=== PATIENT | male | born 1950 | race African-American/Black ===

== ENCOUNTER 2016-12-27 03:31 | Emergency (ER) | payer OTHER, MEDICAID ==
[~2016-12-27] VITALS: Ht 177.8 cm; Wt 114.0 kg
[2016-12-27] MEDS ORDERED: MORPHINE SULFATE 4 MG/ML CPJ (NOT FOR IM USE) IV STA (03:48)
[2016-12-27] MEDS ORDERED: ONDANSETRON HCL 4MG/2ML VIAL IV STA (03:48)
[2016-12-27] MEDS ORDERED: NITROGLYCERIN 0.4MG TABLET SL SL PRN (04:00)
[2016-12-27 04:14] LABS: BASOPHILS % 0.2 % (0.0-2.0); EOSINOPHILS % 4.8 % (0.0-5.0); HEMATOCRIT. 39.7 % (42.0-52.0); HEMOGLOBIN. 13.5 g/dL (14.0-18.0); LYMPHOCYTES % 30.4 % (20.0-50.0); MEAN CORPUSCULAR HGB CONC 33.9 g/dL (31.0-37.0); MEAN CORPUSCULAR VOLUME 88.6 fL (80.0-94.0); MEAN PLATELET VOLUME 9.4 fl (7.4-10.4); MONOCYTES % 10.4 % (2.0-8.0); NEUTROPHILS % 54.2 % (40.0-76.0); PLATELET 237 x1000/uL (130-400); RED BLOOD CELL COUNT 4.48 mill/uL (4.7-6.1)
[2016-12-27 04:19] LABS: INR 1.1; PARTIAL THROMBOPLASTIN TIME 27.5 sec (24.0-34.0); PROTHROMBIN TIME 11.5 sec
[2016-12-27 04:24] LABS: ALANINE AMINOTRANSFERASE 38 IU/L (13-61); ALBUMIN 3.6 g/dL (3.4-5.0); ANION GAP 14; CARBON DIOXIDE 27 mEq/L (21-32); CHLORIDE 105 mEq/L (98-107); INDEX HEMOLYSI 1 (1-3); INDEX ICTERIC 1 (1-4); INDEX LIPEMIC 1 (1-3); LIPASE 159 IU/L (73-393); TROPONIN I < 0.02 ng/mL (0.00-0.04); UREA NITROGEN BLOOD 9 mg/dL (7-21); eGFR > 60 mL/min (>60)
[2016-12-27] MEDS ORDERED: POTASSIUM CHLORIDE 40MEQ/30ML UDC PO ONE (05:00)
[2016-12-27] MEDS ORDERED: POTASSIUM CHLORIDE 20 MEQ/PACKET PO NR (05:32)
[2016-12-27 06:55] VITALS: BP 117/76
== END 2016-12-27 07:26 | disposition short-term general hospital (02) ==
LOC: ER 04:05
DX: R07.89 Other chest pain (principal); R20.0 Anesthesia of skin; R42 Dizziness and giddiness; F41.9 Anxiety disorder, unspecified; E78.00 Pure hypercholesterolemia, unspecified; I10 Essential (primary) hypertension; E03.9 Hypothyroidism, unspecified
CPT/HCPCS: 36415; 71010; 80053; 83690; 84484; 85025; 85379; 85610; 85730; 93005; 96374; 96375; 99285; J2270; J2405

== ENCOUNTER 2018-09-02 19:22 | Inpatient (IN) | payer OTHER, MEDICAID ==
[~2018-09-02] VITALS: Ht 175.3 cm; Wt 103.4 kg
[2018-09-02] MEDS ORDERED: VISCOUS LIDOCAINE 2% 15 ML UDC PO STA (20:03)
[2018-09-02 21:41] LABS: BASOPHILS % 0.1 % (0.0-2.0); EOSINOPHILS % 4.9 % (0.0-5.0); HEMOGLOBIN. 13.4 g/dL (14.0-18.0); LYMPHOCYTES % 33.4 % (20.0-50.0); MEAN CORPUSCULAR HEMOGLOBIN 31.1 pg (28.0-32.0); MEAN CORPUSCULAR VOLUME 92.7 fL (80.0-94.0); MEAN PLATELET VOLUME 9.6 fl (7.4-10.4); NEUTROPHILS % 51.6 % (40.0-76.0); PLATELET 231 x1000/uL (130-400); RED BLOOD CELL COUNT 4.32 mill/uL (4.7-6.1); RED CELL DISTRIBUTION WIDTH 13.2 % (11.6-14.6)
[2018-09-02 21:42] LABS: CHLORIDE 107 mEq/L (98-107)
[2018-09-02 21:45] LABS: PROTHROMBIN TIME 10.4 sec (9.1-11.1)
[2018-09-02] MEDS ORDERED: POTASSIUM CHLORIDE 20MEQ/PACKET PO NR (21:45)
[2018-09-02 21:50] LABS: CLARITY URINE CLEAR (CLEAR); COLOR URINE YELLOW (YELLOW); KETONES URINE NEGATIVE (NEGATIVE); LEUKOCYTE ESTERASE URINE NEGATIVE (NEGATIVE); NITRITE URINE NEGATIVE (NEGATIVE); OCCULT BLOOD URINE TRACE (NEGATIVE); PH URINE 5.5 (4.5-8.0); PROTEIN URINE NEGATIVE (NEGATIVE); SPECIFIC GRAVITY URINE 1.006 (1.005-1.030); UROBILINOGEN URINE 0.2 E.U./dL (0.2-1.0)
[2018-09-02 21:56] LABS: T4 FREE 1.22 ng/dL (0.76-1.46)
[2018-09-02] MEDS ORDERED: ASPIRIN 81MG TABLET PO ONE (22:30)
[2018-09-03] MEDS ORDERED: NA PHOS,M-B/NA PHOS,DI-BA ENEMA 118ML PR PRN
[2018-09-03] MEDS ORDERED: CLONIDINE 0.1MG TABLET PO PRN
[2018-09-03] MEDS ORDERED: MAGNESIUM/ALUMINUM HYDROXIDE/SIMETHICONE 30ML UDC PO PRN
[2018-09-03] MEDS ORDERED: IPRATROPIUM/ALBUTEROL 0.5-3(2.5)MG/3ML NEB INH PRN
[2018-09-03] MEDS ORDERED: ACETAMINOPHEN 650MG/20.3ML UDC GT PRN
[2018-09-03] MEDS ORDERED: GUAIFENESIN 200MG/10ML SUGAR FREE UDC PO PRN
[2018-09-03] MEDS ORDERED: ACETAMINOPHEN 325MG TABLET PO PRN
[2018-09-03] MEDS ORDERED: THROAT LOZENGES-BENZOCAINE/MENTH/CETYLPYRD CL LOZENGES MM PRN
[2018-09-03] MEDS ORDERED: HYDROCODONE/ACETAMINOPHEN 5/325MG TABLET PO PRN
[2018-09-03] MEDS ORDERED: DIPHENHYDRAMINE 50MG/ML VIAL IV PRN
[2018-09-03] MEDS ORDERED: DOCUSATE SODIUM 100MG CAPSULE PO PRN
[2018-09-03] MEDS ORDERED: HYDROCODONE/ACETAMINOPHEN 10/325MG TABLET PO PRN
[2018-09-03] MEDS ORDERED: ONDANSETRON HCL 4MG/2ML INJ IV PRN
[2018-09-03] MEDS ORDERED: ACETAMINOPHEN 650MG SUPP PR PRN
[2018-09-03 06:00] VITALS: BP 135/74
[2018-09-03] MEDS: SODIUM CHLORIDE 0.9% INJ 3ML FLUSH IVF SCH ×3 (06:25→21:40)
[2018-09-03 08:00] VITALS: BP 131/60
[2018-09-03] MEDS ORDERED: REGADENOSON 0.4 MG/5 ML IV SCH (08:45)
[2018-09-03] MEDS ORDERED: ASPIRIN 81MG EC TABLET PO SCH (09:00)
[2018-09-03] MEDS ORDERED: ENOXAPARIN 40MG/0.4ML SYR SUBCUT SCH (09:00)
[2018-09-03 09:30] VITALS: BP 131/60
[2018-09-03] MEDS ORDERED: SIMV40TA5 PO (09:56)
[2018-09-03] MEDS ORDERED: ASPI-1079 PO (09:57)
[2018-09-03] MEDS ORDERED: IBUP-2030 PO (09:58)
[2018-09-03] MEDS ORDERED: OMEP20CA10 PO (09:58)
[2018-09-03] MEDS ORDERED: SYN175 PO (09:59)
[2018-09-03] MEDS ORDERED: ATEN50TA PO (09:59)
[2018-09-03] MEDS: ASPIRIN 81MG TABLET PO SCH (11:24)
[2018-09-03 12:00] VITALS: BP 118/64
[2018-09-03 14:20] LABS: *AMPHETAMINES SCREEN URINE NEGATIVE (NEGATIVE); *BARBITURATES SCREEN URINE NEGATIVE (NEGATIVE)
[2018-09-03 14:21] LABS: *BENZODIAZEPINES SCREEN URINE NEGATIVE (NEGATIVE); *COCAINE SCREEN URINE NEGATIVE (NEGATIVE)
[2018-09-03 14:24] LABS: METHADONE URINE SCREEN NEGATIVE (NEGATIVE); OPIATES URINE SCREEN NEGATIVE (NEGATIVE)
[2018-09-03 14:25] LABS: CANNABINOID URINE SCREEN NEGATIVE (NEGATIVE); PHENCYCLIDINE URINE SCREEN NEGATIVE (NEGATIVE)
[2018-09-03 15:56] LABS: BASOPHILS % 0.1 % (0.0-2.0); CHLORIDE 105 mEq/L (98-107); EOSINOPHILS % 4.6 % (0.0-5.0); HEMATOCRIT. 41.2 % (42.0-52.0); HEMOGLOBIN. 13.8 g/dL (14.0-18.0); LYMPHOCYTES % 34.9 % (20.0-50.0); MEAN CORPUSCULAR HEMOGLOBIN 30.8 pg (28.0-32.0); MEAN CORPUSCULAR VOLUME 91.9 fL (80.0-94.0); MEAN PLATELET VOLUME 9.3 fl (7.4-10.4); MONOCYTES % 11.4 % (2.0-8.0); PLATELET 242 x1000/uL (130-400); RED BLOOD CELL COUNT 4.48 mill/uL (4.7-6.1)
[2018-09-03 16:00] VITALS: BP 106/59
[2018-09-03 16:06] LABS: LDL CHOLESTEROL 86 mg/dL (5-100)
[2018-09-03 16:07] LABS: HDL CHOLESTEROL 45 mg/dL (40-59)
[2018-09-03] MEDS ORDERED: POTASSIUM CHLORIDE 20MEQ TABLET SR PO NR (17:30)
[2018-09-03 19:23] LABS: CREATINE KINASE 149 IU/L (39-308)
[2018-09-03 19:24] LABS: CREATINE KINASE MB FRACTION 1.3 ng/mL (0.5-3.6)
[2018-09-03 20:00] VITALS: BP 118/61
[2018-09-04] VITALS (7 sets, daily range): BP systolic 107–155; BP diastolic 57–77
[2018-09-04] MEDS: SODIUM CHLORIDE 0.9% INJ 3ML FLUSH IVF SCH ×3 (05:07→21:18)
[2018-09-04] MEDS: ASPIRIN 81MG TABLET PO SCH (09:06)
[2018-09-04] MEDS ORDERED: REGADENOSON 0.4 MG/5 ML IV ONE (14:16)
[2018-09-04] MEDS ORDERED: RIVAROXABAN 10 MG TABLET PO SCH (17:00)
[2018-09-04] MEDS ORDERED: XAR15 GT (17:16)
[2018-09-04] MEDS ORDERED: POTASSIUM CHLORIDE 20MEQ TABLET SR PO NR (19:15)
[2018-09-04] MEDS ORDERED: RIVAROXABAN 10 MG TABLET PO NR (19:30)
[2018-09-05] MEDS ORDERED: RIVAROXABAN 15 MG TABLET PO SCH (09:00)
== END 2018-09-04 22:00 | disposition home or self-care (01) | DRG 301 ==
LOC: ER 19:22 → ENRESERV 09-03 04:44 → 6WST 09-03 05:52
PROVIDERS: ADMIT Family Medicine; ATTEND Family Medicine
DX: I82.412 Acute embolism and thrombosis of left femoral vein (principal); R07.9 Chest pain, unspecified; E03.9 Hypothyroidism, unspecified; E11.9 Type 2 diabetes mellitus without complications; E78.00 Pure hypercholesterolemia, unspecified; F41.9 Anxiety disorder, unspecified; E78.5 Hyperlipidemia, unspecified; I10 Essential (primary) hypertension; Z82.49 Family history of ischemic heart disease and other diseases of the circulatory system; Z83.3 Family history of diabetes mellitus; Z79.82 Long term (current) use of aspirin; Z79.899 Other long term (current) drug therapy
CPT/HCPCS: 36415; 71045; 78452; 80061; 80305; 82550; 82553; 83036; 83880; 84439; 84443; 84484; 85379; 87070; 87430; 93005; 93017; 93306; 93970; 99285; A9500; J1650; J2785